=== PATIENT | male | born 1960 | race Caucasian/White ===

== ENCOUNTER 2017-07-14 09:09 | Day surgery (SDC) | payer BC ==
[2017-07-13 11:47] VITALS: BMI 21.4
--- NOTE | 2017-07-14 11:03 | HP ---
History & Physical Update - History History: No Change - Physical Physical: No Change - Assessment Assessment: No Change - Plan Plan: No Change Currently as noted:: Robotic possible open left inguinal hernia repair with mesh
[2017-07-14] MEDS ORDERED: BUPIVACAINE HCL/PF 0.5% (5MG/ML) 10 ML VIAL ONE (11:08)
[2017-07-14] MEDS ORDERED: PROPOFOL 20 ML ONE (11:30)
[2017-07-14] MEDS ORDERED: MIDAZOLAM HCL 2 MG/2 ML SINGLE DOSE VIAL ONE (11:30)
[2017-07-14] MEDS ORDERED: DEXAMETHASONE SOD PHOSPHATE 4 MG/1 ML VIAL ONE (11:31)
[2017-07-14] MEDS ORDERED: ePHEDrine SULFATE 50 MG/1 ML AMPULE ONE (11:31)
[2017-07-14] MEDS ORDERED: ROCURONIUM BROMIDE 50 MG/5 ML VIAL ONE (11:31)
[2017-07-14] MEDS ORDERED: ceFAZolin SODIUM 1 GM VIAL ONE (11:31)
[2017-07-14] MEDS ORDERED: DESFLURANE GAS 240 ML BOTTLE IH ONE (11:32)
[2017-07-14] MEDS ORDERED: SODIUM CHLORIDE 0.9% P/F 10 ML VIAL IJ ONE (11:38)
[2017-07-14] MEDS ORDERED: GLYCOPYRROLATE 0.2 MG/1 ML VIAL ONE (13:21)
[2017-07-14] MEDS ORDERED: NEOSTIGMINE METHYLSULFATE 0.5 MG/ML - 10 ML MDV ONE (13:22)
--- NOTE | 2017-07-14 13:49 | OP ---
Operative Note - Note: Operative Date: 07/14/17 Pre-Operative Diagnosis: left inguinal hernia Operation: robotic assisted left inguinal hernia repair with mesh Surgeon: Ezekiel Parks Subway Operator: Maria Esther Willard Anesthesia: General Estimated Blood Loss (mls): 20 Drains, Volume Out (mls): 100 (quintero) Fluid Volume Replaced (mls): 1,500 Operative Report Dictated: Yes
--- NOTE | 2017-07-14 13:50 | SURG ---
Surgery Sewer Head Note Sewer Head: Maria Esther Willard PA-C Date of Service: 07/14/17 Diagnosis: left inguinal hernia Procedure: robotic assisted left inguinal hernia repair with mesh I was present for the entirety of the operative procedure. For further detail, please refer to operative report. Visit type - Case Type Case Type: Scheduled Admission - Emergency Emergency Visit: No - New patient This patient is new to me today: Yes Date on this admission: 07/14/17 - Critical Care Critical Care patient: No
[2017-07-14] MEDS ORDERED: oxyCODONE HCL 5 MG TABLET PO PRN (14:11)
[2017-07-14] MEDS ORDERED: ONDANSETRON 4 MG/2 ML VIAL IVPUSH PRN (14:11)
[2017-07-14] MEDS ORDERED: LACTATED RINGERS SOLUTION 1,000 ML IV SCH (14:15)
[2017-07-14 15:19] VITALS: TEMP 98.2
--- NOTE | 2017-07-14 16:06 | SPEC ---
DATE OF OPERATION: 07/14/2017 SURGEON: Ezekiel Parks MD ROLL GRINDER OPERATOR: NIR Mata PREOPERATIVE DIAGNOSIS: Left inguinal hernia with pain. POSTOPERATIVE DIAGNOSIS: Left direct inguinal hernia. PROCEDURE: Robotic repair of left direct inguinal hernia with mesh. SPECIMEN: None. ESTIMATED BLOOD LOSS: 10 mL DRAINS: None. ANESTHESIA: GET. REASON FOR PROCEDURE: This is a 57-year-old gentleman who presented to the office with groin pain and groin swelling and bulging. He was found to have a left inguinal hernia on exam. Because of this, he was consented for robotic, possible open left inguinal hernia repair with mesh. The risks and benefits of the procedure were explained. RISKS AND BENEFITS: The risks and benefits of a Robotic, possible open left inguinal hernia repair, possible bilateral inguinal hernia repair with mesh were explained. These included bleeding, infection, recurrence of hernia, RI, DVT, PE, new hernia, mesh infection, injury to surrounding structures, including the colon, bowel, bladder, ureter, spermatic cord, spermatic vessels, vas deferens, vessel injury, nerve injury, testicular injury, including testicular atrophy and possible testicular loss, and as some of the possible complications. The patient understood and signed informed consent. DESCRIPTION OF PROCEDURE: The patient was placed supine on the operating table. The patient underwent general endotracheal intubation. A Gama catheter was inserted. The arms were tucked at the side and he was placed on a beanbag device. The abdomen was prepped and draped in the usual sterile fashion. A time-out was performed. A periumbilical incision was made and entrance into the abdominal cavity was obtained using an 8-mm robotic optical trocar under direct visualization with the laparoscope. Pneumoperitoneum was established. Subsequently, 2 additional 8-mm trocars were placed, one approximately 6 to 7 cm to the left of the umbilicus and one 6 to 7 cm to the right of the umbilicus. The patient was placed in steep Trendelenburg [id number] position. The robot was brought over the field and docked. Dissection was performed at the console. The peritoneum was opened using robotic Endo Avelina. The preperitoneal space over the left inguinal region was dissected. The epigastric vessels were identified and dissected toward the anterior abdominal wall. Dissection in the preperitoneal space was continued from the medial umbilical ligament towards the anterior-superior iliac spine. Medially, dissection was performed until William's ligament and the pubis were identified. Lateral to this, the spermatic cord structures, including the vas deferens, were identified. The contents of the hernia sac were identified and dissected down to the retroperitoneum. At this point, hemostasis was identified. Again, all of the hernia content was noted to be completely dissected and noted to have no retraction back to its original position. A Symbotex mesh was then chosen, irrigated and inserted into the abdominal cavity to cover the entire myopectineal orifice. The mesh was secured medially at the pubis and superolaterally to the abdominal wall with sutures. The mesh was noted to be in good position. The hernia was again noted to be fully reduced and without any tension. At this point, the peritoneal flap was closed using a 2-0 V-Loc suture. Again, hemostasis was identified. All needles were removed from the field and the count was confirmed to be correct. The robotic instruments were removed. The robot was undocked and removed from the operative field. The patient was placed supine. Pneumoperitoneum was desufflated. All trocars were removed. All incision sites were irrigated and Marcaine was injected in all incision sites. Hemostasis was noted at all incision sites. All incision sites were closed using 4-0 Biosyn. Sterile dressings were applied. The Gama catheter was removed. The patient tolerated the procedure well and was transferred to the recovery room in stable condition. Kash [id number]
[2017-07-14 20:44] VITALS: BP 151/85; PULSE 100
== END 2017-07-14 21:08 | disposition home or self-care (01) ==
LOC: JASU-SURG 09:09
PROVIDERS: ATTEND Surgery
PROC: 8E0W4CZ Robotic Assisted Procedure of Trunk Region, Percutaneous Endoscopic Approach (ICD-10-PCS; 2017-07-14)
PROC: 0YU64JZ Supplement Left Inguinal Region with Synthetic Substitute, Percutaneous Endoscopic Approach (ICD-10-PCS; principal; 2017-07-14 11:00)
DX: K40.90 Unilateral inguinal hernia, without obstruction or gangrene, not specified as recurrent (principal)
CPT/HCPCS: 49650; S2900; 94760